=== PATIENT | female | born 1970 | race Native Hawaiian/Other Pacific Islander ===

== ENCOUNTER 2019-04-06 11:01 | Outpatient (CLI) | payer BC | END 2019-04-06 19:14 | disposition home or self-care (01) | LOC: MAMMO 11:01 | DX: Z12.31 Encounter for screening mammogram for malignant neoplasm of breast (principal) ==

== ENCOUNTER 2019-10-21 16:05 | Outpatient (CLI) | payer BC | END 2019-10-21 21:32 | disposition home or self-care (01) | LOC: RAD 16:05 | DX: M54.5 Low back pain (principal) ==

== ENCOUNTER 2019-12-07 13:00 | Outpatient (CLI) | payer BC | END 2019-12-07 23:45 | disposition home or self-care (01) | LOC: MAMMO 13:00 | DX: N64.4 Mastodynia (principal) | CPT/HCPCS: G0279 ==

== ENCOUNTER 2020-06-13 13:03 | Outpatient (CLI) | payer BC | END 2020-06-13 19:16 | disposition home or self-care (01) | LOC: MAMMO 13:03 | PROVIDERS: ATTEND Obstetrics & Gynecology | DX: Z12.31 Encounter for screening mammogram for malignant neoplasm of breast (principal) ==